=== PATIENT | male | born 1985 | race Caucasian/White ===

== ENCOUNTER → 2018-01-12 | Outpatient (REF) | payer OTHER ==
[2018-01-12 16:54] LABS: ALBUMIN 4.2 GM/DL (3.2-5.2); ALKALINE PHOSPHATASE 56 U/L (45-117); ALT/SGPT 25 U/L (12-78); ANION GAP 8 MEQ/L (8-16); AST/SGOT 18 U/L (7-37); BILIRUBIN,TOTAL 0.8 MG/DL (0.2-1.0); BLOOD UREA NITROGEN 15 MG/DL (7-18); CALCIUM LEVEL 8.4 MG/DL (8.5-10.1); CARBON DIOXIDE LEVEL 27 MEQ/L (21-32); CHLORIDE LEVEL 107 MEQ/L (98-107); CHOLESTEROL LEVEL 121 MG/DL (<200); CREATININE FOR GFR 0.95 MG/DL (0.70-1.30); GLOMERULAR FILTRATION RATE > 60.0 (>60); GLUCOSE, FASTING 74 MG/DL (70-100); HDL CHOLESTEROL 42 MG/DL (>40); LDL CHOLESTEROL 59.6 MG/DL (<100); NON-HDL-C 79 MG/DL; POTASSIUM SERUM 4.3 MEQ/L (3.5-5.1); SODIUM LEVEL 142 MEQ/L (136-145); TOTAL PROTEIN 7.2 GM/DL (6.4-8.2); TRIGLYCERIDES LEVEL 97 MG/DL (<150)
[2018-01-12 16:55] LABS: BASO % 0.6 % (0.0-1.0); EOS # 0.6 10^3/uL (0.0-0.50); EOS % 9.4 % (0.0-3.0); HEMATOCRIT 36.6 % (42.0-52.0); HEMOGLOBIN 11.7 g/dl (13.5-17.5); IMMATURE GRANULOCYTE % 0.3 % (0-3.0); LYMPH # 2.7 10^3/uL (1.5-4.5); LYMPH % 40.5 % (24.0-44.0); MEAN CORPUSCULAR HEMOGLOBIN 22.1 pg (27.0-33.0); MEAN CORPUSCULAR VOLUME 69.1 fl (80.0-96.0); MONO # 0.5 10^3/uL (0.0-0.8); MONO % 7.6 % (0.0-5.0); NEUTROPHILS # 2.8 10^3/uL (1.8-7.7); NEUTROPHILS % 41.6 % (36.0-66.0); PLATELET COUNT, AUTOMATED 322 10^3/uL (150-450); RED CELL DISTRIBUTION WIDTH 18.1 % (11.5-14.5); WHITE BLOOD COUNT 6.6 10^3/uL (4.0-10.0)
== END ==
LOC: M SFHCCAPE 07:03
DX: F32.1 Major depressive disorder, single episode, moderate (principal); F41.1 Generalized anxiety disorder; Z13.6 Encounter for screening for cardiovascular disorders
CPT/HCPCS: 84443

== ENCOUNTER → 2018-06-17 | Outpatient (CLI) | payer OTHER ==
--- NOTE | 2018-06-17 12:47 | REP ---
MRI LUMBAR SPINE WITHOUT CONTRAST: HISTORY: Change in bowel function. Lumbar radiculopathy. Pain in the low back. TECHNIQUE: Sagittal and axial T1- and T2-weighted scans are acquired in the usual fashion with and without fat saturation. Sequences include spin echo, turbo spin-echo, and STIR imaging sequences. MRI FINDINGS: Lumbar vertebral body heights are preserved. Alignment is normal. There is bilateral L5 spondylolysis suspected without spondylolisthesis. Pedicles and posterior elements are otherwise intact. The tip of the conus medullaris is normal in position and appearance at T12-L1. There are degenerative disc changes at the T10-T11 level with mild central disc bulging and anterior osteophyte formation. No significant thecal sac compression is seen. Axial and sagittal images at the L1-2 disc level show diffuse disc bulging. This effaces the ventral margin of the thecal sac. No central canal stenosis or neural foraminal narrowing is evident. No focal disc herniation is seen. At the L2-L3, there is minimal diffuse disc bulging as well. No other finding. At L3-L4, there is minimal diffuse disc bulging effacing the ventral margin of the thecal sac. No central canal stenosis or neural foraminal encroachment is seen. At L4-5, there is a subtle central disc bulge. There is facet hypertrophy mild in degree bilaterally at L4-5. No central canal stenosis noted. There is mild left-sided neural foraminal narrowing due to facet hypertrophy. At L5-S1, there is no significant disc abnormality. Facet hypertrophy is noted bilaterally. Incidental note is made of a sacralization of the left transverse process at L5 with a pseudoarthrosis on the left. IMPRESSION: Multilevel degenerative disc changes with mild diffuse disc bulging. Some facet hypertrophy is noted as above. There is left-sided L4-5 neural foraminal encroachment from facet hypertrophy. Bilateral L5 spondylolysis without spondylolisthesis. Electronically Signed by Matt Conley MD 06/17/2018 04:13 P
== END ==
LOC: M PLARAD 09:49
PROVIDERS: ATTEND Physician Assistant
DX: M54.16 Radiculopathy, lumbar region (principal); R19.8 Other specified symptoms and signs involving the digestive system and abdomen; M43.06 Spondylolysis, lumbar region; M51.26 Other intervertebral disc displacement, lumbar region

== ENCOUNTER → 2018-07-14 | Outpatient (CLI) | payer OTHER ==
[~2018-07-14] MED LIST: ACET-683; CYCL10TA; HYDR-3713; MELO15TA28; NEUR300C PO; PRED20TA PO; VENTAER
--- NOTE | 2018-07-19 00:31 | ECWPNPC ---
PATIENT NAME: CUCA ABEL : 1985 GENDER: MALE VISIT DATE: 07/14/2018 DISCHARGE DATE: 07/14/18 1535 VISIT LOCKED DATE TIME: PHYSICIAN: HEIDI TREVIÑO MD RESOURCE: HEIDI TREVIÑO MD REASON FOR APPOINTMENT 1. W/C LUMBAR & THORACIC PAIN HISTORY OF PRESENT ILLNESS FALL RISK SCREENING: SCREENING :NO FALLS IN THE PAST YEAR PAIN SCREENING: PATIENT HAS A COMPLAINT OF ACUTE OR CHRONIC PAIN :YES 32 YEAR OLD MALE PATIENT WITH A HISTORY OF CHRONIC LOW BACK AND THORACIC PAIN. THE PATIENT DESCRIBES THE PAIN ACHING, SHARP, STABBING, SHOOTING, AND CONTINUOUS WITH A PAIN SCORE OF 7-10/10 DEPENDING ON PHYSICAL ACTIVITY. 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 THE PATIENT SAYS THAT HIS PAIN STARTS IN HIS LOW BACK AND RADIATES DOWN HIS RIGHT LEG TO HIS TOES WITH SOME NUMBNESS AND TINGLING. THE PATIENT IS ALSO HAVING PAIN IN HIS PELVIC AREA. THE PATIENT SAYS THAT USING HIS TENS UNIT AND GOING TO PHYSICAL THERAPY HAVE BEEN HELPING HIM. THE PATIENT IS CURRENTLY USING HYDROCODONE TO AID IN PAIN RELIEF AND STATES THAT IT HELPS TAKE THE EDGE OFF. PATIENT DENIES UNEXPLAINABLE WEIGHT LOSS, FEVER, CHILLS, NEW CHANGES ON HIS URINARY OR BOWEL CONTROL. CURRENT MEDICATIONS TAKING NORCO 5-325 MG TABLET 1 TABLET ORALLY 3 TIMES A DAY NEEDED, MDD=3 TAKING VENTOLIN HFA 108 (90 BASE) MCG/ACT AEROSOL SOLUTION 2 PUFFS NEEDED INHALATION EVERY 6 HRS TAKING ACETAMINOPHEN 500 MG TABLET 2 TABLETS ORALLY TWICE A DAY TAKING CYCLOBENZAPRINE HCL 10 MG TABLET 1 TABLET NEEDED ORALLY THREE TIMES A DAY, MDD=3 NOT-TAKING MELOXICAM 15 MG TABLET 1 TABLET ORALLY ONCE A DAY NOT-TAKING PHYSICAL THERAPY EVALUATE AND TREAT PHYSICAL THERAPY MECHANICAL EVAL & TX LOW BACK PAIN (M54.16) & NECK PAIN (M54.2) 12 VISITS OVER 4 WEEKS MEDICATION LIST REVIEWED AND RECONCILED WITH THE PATIENT PAST MEDICAL HISTORY HX OF FRACTURED BONES INCLUDING NECK CURRENT SMOKER TENS UNIT ALLERGIES N.K.D.A. SURGICAL HISTORY DENIES PAST SURGICAL HISTORY FAMILY HISTORY FATHER: , DIAGNOSED WITH OTHER MOTHER: ALIVE, DIAGNOSED WITH CANCER, OTHER 1 SON(S) . HX FAMILY OF COLON CA DX IN 60'S. SOCIAL HISTORY GENERAL: TOBACCO USE ARE YOU A:CURRENT SMOKER ARE YOU INTERESTED IN QUITTING?THINKING ABOUT QUITTING COUNSELED THE PATIENT ON SMOKING CESSATION, EDUCATION [id number]/24/2019 HOW MANY CIGARETTES A DAY DO YOU SMOKE?11-20 HOW SOON AFTER YOU WAKE UP DO YOU SMOKE YOUR FIRST CIGARETTE?AFTER 60 MIN HOW OFTEN DO YOU SMOKE CIGARETTES?EVERY DAY PATIENT COUNSELED ON THE DANGERS OF TOBACCO USE AND URGED TO QUIT:07/14/2018 SMOKING CESSATION INFORMATION GIVEN06/08/2018 VAPORNO E-CIGARETTENO ALCOHOL SCREENING DID YOU HAVE A DRINK CONTAINING ALCOHOL IN THE PAST YEAR?NO POINTS0 INTERPRETATIONNEGATIVE RECREATIONAL DRUG USE DRUG USE?YES CAFFEINE CAFFEINE USE?YES COFFEE AND SODA HIV / HEP-C SCREENING HIV TEST OFFERED TO PATIENT:YES DATE OFFERED:06/08/2018 TEST ACCEPTED:NO REASON:PATIENT DECLINED BROCHURE PROVIDED TO PATIENTYES HEP-C TEST OFFERED TO PATIENT:NO CHURCH [id number] BAHAI NO SIKHISM BELIEFS THAT WOULD IMPACT HEALTH CARE. LANGUAGE LANGUAGES SPOKEN:IRISH LEARNING BARRIERS / SPECIAL NEEDS CHANGE FROM LAST VISIT?NO BARRIERS TO LEARNING?NO HEARING IMPAIRED?NO VISION IMPAIRED?NO COGNITIVELY IMPAIRED?NO READINESS TO LEARN?YES LEARNING PREFERENCES?NO LEARNING CAPABILITIES PRESENT?YES EMOTIONAL BARRIERS?YES SPECIAL DEVICES?NO HELIOTHERAPIST NEEDED?NO DOMESTIC VIOLENCE DO YOU FEEL SAFE IN YOUR ENVIRONMENT?YES DIET: REGULAR. EXERCISE: NO REGULAR EXERCISE,WORKS HARD. MARITAL STATUS: . OTHERS AT HOME: CHILD. PAIN CLINIC PFS, CLERGY, PUBLIC HEALTH REFERRALS HAS THE PATIENT BEEN EDUCATED REGARDING HIS/HER PLAN OF CARE?YES HAS THE PATIENT BEEN EDUCATED REGARDING PAIN, THE RISK FOR PAIN, THE IMPORTANCE OF EFFECTIVE PAIN MANAGEMENT, AND THE PAIN ASSESSMENT PROCESS?YES ADVANCE DIRECTIVE ADVANCE DIRECTIVE DISCUSSED WITH PATIENT:YES DECLINED HOSPITALIZATION/MAJOR DIAGNOSTIC PROCEDURE DENIES PAST HOSPITALIZATION REVIEW OF SYSTEMS REVIEWED BY: PROVIDER: HEIDI TREVIÑO MD . CONSTITUTIONAL: ANY CHANGE IN YOUR MEDICAL CONDITION? NO . CHILLS NO . FEVER NO . INFECTION: DO YOU HAVE NEW INFECTIONS? NO . DO YOU HAVE HISTORY OF MRSA? NO . MUSCULOSKELETAL: ANY NEW PATTERNS OF PAIN OR NUMBNESS? NO . SYTEMIC LUPUS NO . GASTROENTEROLOGY: ANY NEW CHANGE IN BOWEL CONTROL? YES, PT C/O SMALL AMOUNT OF BRIGHT RED BLOOD WHEN WIPING . BARRETTS ESOPHAGUS NO . CIRRHOSIS NO . HEPATITIS NO . LIVER FAILURE NO . ACID REFLUX NO . UNEXPLAINED WEIGHT LOSS NO . GENITOURINARY: ANY NEW CHANGE IN BLADDER CONTROL? YES, PT C/O FREQUENCY . IS THERE A CHANCE YOU COULD BE ? NO . HEMATOLOGY/LYMPH: DO YOU TAKE ANY BLOOD THINNERS? (FOR EXAMPLE- COUMADIN, PLAVIX, AGGRENOX, PLATEL, PRADAXA, OR XARELTO) NO . WHEN WAS YOUR LAST DOSE? DATE: TIME: . LOW PLATELET COUNT NO . SICKLE CELL DISEASE NO . VON WILLIEBRANDS NO . FACTOR V LEIDEN NO . THALLASEMIA NO . ANEMIA NO . EASY BRUISING NO . NEUROLOGY: HAVE YOU FALLEN IN THE PAST 6 MONTHS? YES, PT FELL 01/2018 WHILE AT WORK LOST FOOTING DURING CONSTRUCTION TRANSFERING EQUIPMENT, PT WAS SEEN AT [facility] ER FOR INJURIES WHERE IMAGING WAS DONE AND MUSCLE RELAXERS WERE GIVEN WHICH HELPED TAKE THE EDGE OFF THE PAIN . ANY NEW EXTREMITY NUMBNESS OR WEAKNESS? NO . HEAD INJURY NO . DEMENTIA NO . CEREBRAL PALSY NO . MULTIPLE SCLEROSIS NO . DIZZINESS NO . HEADACHE NO . STROKES NO . VERTIGO NO . CARDIOLOGY: DO YOU HAVE A PACEMAKER OR DEFIBRILLATOR? NO . ANGINA NO . HEART ATTACK NO . HEART SURGERY NO . CONGESTIVE HEART FAILURE/FLUID OVERLOAD NO . CHEST PAIN NO . HIGH BLOOD PRESSURE NO . IRREGULAR HEART BEAT NO . RESPIRATORY: HAVE YOU BEEN SICK IN THE PAST WEEK? NO . FEVER NO . FLU LIKE SYMPTOMS? NO . CPAP NO . BYPAP NO . ASTHMA NO . EMPHYSEMA NO . CHRONIC LUNG DISEASES NO . SHORTNESS OF BREATH ON EXERTION NO . COUGH NO . SNORING NO . INTEGUMENTARY: DO YOU HAVE ANY RASHES OR OPEN SORES? NO . ALLERGIC/IMMUNO: ARE YOU ALLERGIC TO SHELLFISH OR IV DYE? NO . ANY NEW ALLERGIES? NO . PSYCHIATRIC: DO YOU HAVE THOUGHTS OF HURTING YOURSELF OR SOMEONE ELSE? NO . ARE YOU ABUSED, NEGLECTED, OR IN AN UNSAFE ENVIRONMENT? NO . ENDOCRINOLOGY: ARE YOU DIABETIC? NO . THYROID DISORDER NO . OTHER: DO YOU NEED ANY PRESCRIPTIONS? NO . IF YES, PLEASE LIST: ____ . ANY NEW PROBLEMS WITH YOUR MEDICATIONS? NO . WHEN DID YOU LAST EAT? ____ . WHEN DID YOU LAST DRINK? ____ . WHAT DID YOU LAST DRINK? ____ . NAME OF PERSON DRIVING YOU HOME? ____ . DO YOU HAVE ANY OTHER QUESTIONS OR CONCERNS NO . VITAL SIGNS WT 170.6 LBS, HT 5'9", BMI 25.19 INDEX, BP 126/72 MM HG, HR 85 /MIN, RR 18 /MIN, TEMP 98.9 F, OXYGEN SAT % 98%, NA INITIALS SC 13:06, REVIEWED BY: EM. EXAMINATION GENERAL EXAMINATION: PATIENT IS ALERT O X 3 AND COOPERATIVE. LUNGS CLEAR, TO AUSCULTATION. HEART: NO MURMURS OR GALLOPS; FACIAL CRANIAL NERVES ARE GROSSLY NORMAL. GOOD SYMMETRY OF FACIAL MUSCLE MOVEMENT. NORMAL VISUAL NAVARRO. SEVERE TENDERNESS OVER THE LOW BACK AND THORACIC AREAS. RIGHT LEG IS WEAKER AT FLEXION. PRESENCE OF TRIGGER POINTS AND BANDS OF TISSUE WITH RESTRICTION OF MOVEMENT OF THE BACK. ASSESSMENTS MYALGIA, OTHER SITE - M79.18 (PRIMARY) LOW BACK PAIN - M54.5 OTHER CHRONIC PAIN - G89.29 PAIN IN THORACIC SPINE - M54.6 TREATMENT MYALGIA, OTHER SITE CLINICAL NOTES: WE DISCUSSED SEVERAL ISSUES WITH MR. ABEL'S PAIN MANAGEMENT CASE. DUE TO THE TRIGGER POINTS, BANDS OF TISSUE, AND RESTRICTION OF MOVEMENT, I WOULD LIKE TO MOVE FORWARD WITH A TRIGGER POINT INJECTION AT THIS TIME. WE DISCUSSED THE BENEFITS, RISKS, AND ALTERNATIVES OF THE INJECTION AND THE PATIENT WOULD LIKE TO PROCEED. I WOULD LIKE TO DISCUSS THE CASE WITH EDGAR GASTON REGARDING THE PATIENT'S MEDICATIONS AND WILL HAVE HER FILL OUT THE MEDICATION AGREEMENT FORM. THE PATIENT WILL FOLLOW UP IN ONE MONTH. INSTRUCTIONS WERE GIVEN, QUESTIONS WERE ANSWERED, PATIENT REPORTS UNDERSTANDING AND AGREES WITH THE PLAN. I, MAYCO CABALLERO, DOCUMENTED THE ABOVE INFORMATION ACTING A SCRIBE FOR DR. TREVIÑO. I HAVE REVIEWED THE ABOVE DOCUMENT, WRITTEN BY MAYCO ESCAMILLA AND I VERIFY THAT IT IS ACCURATE. DEAR DR. REICH:THANK YOU FOR YOUR KIND REFERRAL OF MR. ABEL. IF YOU WANT TO DISCUSS HIS CASE WITH ME PLEASE CALL ME AT THE PAIN CENTER AT [phone]. SINCERELY,HEIDI TREVIÑO, [facility]. OTHERS NOTES: TRIGGER POINT INJECTION MATERIAL WAS PRINTED, REVIEWED AND GIVEN TO PT. EM. PROCEDURES PN WORKMANS' COMP OPINION IN YOUR OPINION, WAS THE INCIDENT THAT THE PATIENT DESCRIBED THE COMPETENT MEDICAL CAUSE OF THIS INJURY/ILLNESS? YES ARE THE PATIENT'S COMPLAINTS CONSISTENT WITH HIS/HER HISTORY OF THE INJURY/ILLNESS? YES IS THE PATIENT'S HISTORY OF THE INJURY/ILLNESS CONSISTENT WITH YOUR OBJECTIVE FINDING? YES WHAT IS THE PERCENTAGE OF TEMPORARY IMPAIRMENT? MODERATE TO MARKED = 66.7% IS THE PATIENT WORKING? NO DOCTOR ON SITE: HEIDI SIMONS MD PROCEDURE CODES FA211 ESTABILISHED PATIENT [facility] FACILITY CHARGE G8427 CURRENT MEDS W/DOSAGES DOCUMENTED G8730 PAIN ASSESS POS TOOL F/U PLAN DOC DISPOSITION & COMMUNICATION FOLLOW UP 4 WEEKS (REASON: W/C LOW BACK AND THORACIC) ELECTRONICALLY SIGNED BY HEIDI TREVIÑO MD, MD ON 07/18/2018 AT 03:18 PM EST DISCLAIMER : THIS IS A VISIT SUMMARY EXTRACTED FROM THE [employer] CHART. IT IS NOT A COPY OF THE [employer] PROGRESS NOTE. SIDNEY
== END ==
LOC: M PAIN 13:00
PROVIDERS: ATTEND Anesthesiology
DX: G89.29 Other chronic pain (principal); M79.18 Myalgia, other site; M54.5 Low back pain; M54.6 Pain in thoracic spine; F17.210 Nicotine dependence, cigarettes, uncomplicated; Z79.899 Other long term (current) drug therapy

== ENCOUNTER 2018-07-16 12:22 | Emergency (ER) | payer OTHER, SELFPAY ==
[~2018-07-16] VITALS: Ht 175.3 cm; Wt 76.4 kg
[2018-07-16 12:36] VITALS: BP 134/81
[2018-07-16] MEDS ORDERED: MELO15TA28 (12:41)
[2018-07-16] MEDS ORDERED: CYCL10TA (12:41)
[2018-07-16] MEDS ORDERED: HYDR-3713 (12:41)
[2018-07-16] MEDS ORDERED: VENTAER (12:41)
[2018-07-16] MEDS ORDERED: ACET-683 (12:41)
[2018-07-16] MEDS ORDERED: KETOROLAC 60 MG/2 ML VIAL (J1885) IM ONE (13:00)
[2018-07-17] MEDS ORDERED: PRED20TA PO (13:54)
[2018-07-17] MEDS ORDERED: NEUR300C PO (13:54)
== END 2018-07-16 13:40 | disposition left against medical advice (07) ==
LOC: M ED 12:22
DX: M54.5 Low back pain (principal); J45.909 Unspecified asthma, uncomplicated; M51.9 Unspecified thoracic, thoracolumbar and lumbosacral intervertebral disc disorder; F17.200 Nicotine dependence, unspecified, uncomplicated; Z79.899 Other long term (current) drug therapy
CPT/HCPCS: 96372; 99281; J1885

== ENCOUNTER 2018-07-17 12:59 | Emergency (ER) | payer OTHER, SELFPAY ==
[~2018-07-17] VITALS: Ht 175.3 cm; Wt 74.5 kg
[~2018-07-17 12:59] MED LIST changes: -NEUR300C PO; -PRED20TA PO
[2018-07-17 13:00] VITALS: BP 161/85
[2018-07-17] MEDS ORDERED: NEUR300C PO (13:54)
[2018-07-17] MEDS ORDERED: PRED20TA PO (13:54)
== END 2018-07-17 14:32 | disposition home or self-care (01) ==
LOC: M ED 12:59
DX: M54.5 Low back pain (principal); M54.16 Radiculopathy, lumbar region; Z76.5 Malingerer [conscious simulation]; J45.909 Unspecified asthma, uncomplicated; F17.210 Nicotine dependence, cigarettes, uncomplicated

== ENCOUNTER → 2019-01-05 | Outpatient (REF) | payer OTHER ==
[~2019-01-05] MED LIST changes: +NEUR300C PO; +PRED20TA PO
[2019-01-05 17:04] LABS: BASO % 0.3 % (0.0-1.0); EOS # 0.5 10^3/uL (0.0-0.50); EOS % 7.3 % (0.0-3.0); HEMATOCRIT 37.8 % (42.0-52.0); LYMPH # 2.7 10^3/uL (1.5-4.5); LYMPH % 41.5 % (24.0-44.0); MEAN CORPUSCULAR HEMOGLOBIN 21.7 pg (27.0-33.0); MEAN CORPUSCULAR HGB CONC 31.7 g/dl (32.0-36.5); MEAN CORPUSCULAR VOLUME 68.4 fl (80.0-96.0); MONO # 0.5 10^3/uL (0.0-0.8); NEUTROPHILS # 2.9 10^3/uL (1.8-7.7); NEUTROPHILS % 43.6 % (36.0-66.0); PLATELET COUNT, AUTOMATED 325 10^3/uL (150-450); RED BLOOD COUNT 5.53 10^6/uL (4.30-6.10); WHITE BLOOD COUNT 6.6 10^3/uL (4.0-10.0)
[2019-01-05 17:19] LABS: ALBUMIN 4.5 GM/DL (3.2-5.2); ALT/SGPT 24 U/L (12-78); BLOOD UREA NITROGEN 15 MG/DL (7-18); CALCIUM LEVEL 9.3 MG/DL (8.5-10.1); CARBON DIOXIDE LEVEL 28 MEQ/L (21-32); CHLORIDE LEVEL 108 MEQ/L (98-107); CREATININE FOR GFR 0.96 MG/DL (0.70-1.30); GLOMERULAR FILTRATION RATE > 60.0 (>60); GLUCOSE, FASTING 76 MG/DL (70-100); POTASSIUM SERUM 4.3 MEQ/L (3.5-5.1); SODIUM LEVEL 143 MEQ/L (136-145); TOTAL PROTEIN 7.5 GM/DL (6.4-8.2); URIC ACID 3.5 MG/DL (3.5-7.2)
[2019-01-08 00:06] LABS: ANA (HEP2) Negative (.)
== END ==
LOC: M SFHCCLAY 11:12
PROVIDERS: ATTEND Family Medicine
DX: M25.441 Effusion, right hand (principal); M25.442 Effusion, left hand

== ENCOUNTER → 2019-01-05 | Outpatient (CLI) | payer OTHER ==
--- NOTE | 2019-01-05 15:18 | REP ---
Right hand four views : There is no fracture or dislocation. Mineralization and joint spaces are normal. There are no calcifications or foreign bodies. Impression: Negative right hand. Left hand four views : There is no fracture or dislocation. Mineralization and joint spaces are normal. There are no calcifications or foreign bodies. Impression: Negative left hand . Electronically Signed by Martin Rico MD 01/05/2019 03:09 P
== END ==
LOC: M CLY 11:16
PROVIDERS: ATTEND Family Medicine
DX: M25.441 Effusion, right hand (principal); M25.442 Effusion, left hand

== ENCOUNTER → 2019-01-26 | Outpatient (REF) | payer OTHER ==
[2019-01-26 14:15] LABS: C REACTIVE PROTEIN QUANTITATIV < 0.30 MG/DL (0.00-0.30); CPK CREATINE PHOSPHOKINASE 118 U/L (39-308); RHEUMATOID FACTOR QUANT < 10.0 IU/ML (<15.0); URIC ACID 4.2 MG/DL (3.5-7.2)
[2019-01-26 14:17] LABS: FOLATE 9.7 NG/ML; TOTAL 25(OH) VITAMIN D 31.5 NG/ML (30.0-100.0); VITAMIN B12 LEVEL 439 PG/ML
[2019-02-02 00:07] LABS: ANTI DS-DNA AB <1:10 titer (.); ANTINUCLEAR ANTIBODIES DIRECT Negative (Negative); CERULOPLASMIN 18.6 mg/dL (16.0-31.0); COPPER PLASMA 83 ug/dL (72-166); CYCLIC CITRULLINATED PEPTIDE 6 units (0-19); RNP ANTIBODIES <0.2 AI (0.0-0.9); SJOGREN'S ANTI SS-A <0.2 AI (0.0-0.9); SJOGREN'S ANTI SS-B <0.2 AI (0.0-0.9); SMITH ANTIBODIES <0.2 AI (0.0-0.9)
== END ==
LOC: M LABNEURO 09:21
PROVIDERS: ATTEND Psychiatry & Neurology Neurology
DX: F09 Unspecified mental disorder due to known physiological condition (principal)

== ENCOUNTER 2019-03-06 08:55 | Day surgery (SDC) | payer OTHER ==
[~2019-03-06] VITALS: Ht 175.3 cm; Wt 78.5 kg
[~2019-03-06 08:55] MED LIST changes: -ACET-683; +ACET-683 PO; +FLUT44IN INH; +GABA-845 PO; -MELO15TA28; +MELO15TA28 PO; +NS 1,000 ML IV ONE; +TRAM50TA2 PO; -VENTAER; +VENTAER INH
[2019-03-06] MEDS ORDERED: ALBUTEROL SULFATE 2.5 MG/0.5 ML INH NEB SOLN As Ordered ONE (10:17)
[2019-03-06] MEDS ORDERED: ALBUTEROL SULFATE 2.5 MG/0.5 ML INH NEB SOLN INH ONE (11:00)
[2019-03-06] MEDS ORDERED: PROPOFOL 200 MG/20 ML VIAL As Ordered ONE (11:09)
[2019-03-06] MEDS ORDERED: LIDOCAINE 2% INJ 100 MG/5 ML SDV (FOR ANES.) As Ordered ONE (11:09)
--- NOTE | 2019-03-06 12:00 | ROOR ---
Patient Name: Geo Salgado Procedure Date: 03/06/2019 11:15 AM Date of : 1985 Age: 33 Room: [facility] Gender: Male Note Status: Finalized Procedure: Colonoscopy Indications: Hematochezia, ( reports of patients mother not available at this time for review). Providers: Brandyn Bernardo MD Referring MD: Lori ZAMORA DO Requesting Provider: Medicines: Monitored Anesthesia Care Complications: No immediate complications. Procedure: Pre-Anesthesia Assessment: - Prior to the procedure, a History and Physical was performed, and patient medications and allergies were reviewed. The patient is competent. The risks and benefits of the procedure and the sedation options and risks were discussed with the patient. All questions were answered and informed consent was obtained. Patient identification and proposed procedure were verified by the physician, the nurse and the anesthesiologist in the procedure room. Mental Status Examination: alert and oriented. Airway Examination: normal oropharyngeal airway and neck mobility. Respiratory Examination: clear to auscultation. CV Examination: normal. Prophylactic Antibiotics: The patient does not require prophylactic antibiotics. Prior Anticoagulants: The patient has taken no previous anticoagulant or antiplatelet agents. ASA Grade Assessment: II - A patient with mild systemic disease. After reviewing the risks and benefits, the patient was deemed in satisfactory condition to undergo the procedure. The anesthesia plan was to use monitored anesthesia care (MAC). Immediately prior to administration of medications, the patient was re-assessed for adequacy to receive sedatives. The heart rate, respiratory rate, oxygen saturations, blood pressure, adequacy of pulmonary ventilation, and response to care were monitored throughout the procedure. The physical status of the patient was re-assessed after the procedure. The Colonoscope was introduced through the anus and advanced to the terminal ileum, with identification of the appendiceal orifice and IC valve. The colonoscopy was performed without difficulty. The patient tolerated the procedure well. The quality of the bowel preparation was poor. The terminal ileum, ileocecal valve, appendiceal orifice, and rectum were photographed. Scope insertion time was 4 minutes. Scope withdrawal time was 8 minutes. The total duration of the procedure was 12 minutes. Findings: The perianal and digital rectal examinations were normal. The terminal ileum appeared normal. A moderate amount of semi-solid stool was found from sigmoid to ascending colon, interfering with visualization. Lavage of the area was performed using a large amount of sterile water, resulting in incomplete clearance with fair visualization. Non-bleeding external and internal hemorrhoids were found during retroflexion. The hemorrhoids were medium-sized. Impression: - Preparation of the colon was poor. - The examined portion of the ileum was normal. - Stool from sigmoid to ascending colon. - Non-bleeding external and internal hemorrhoids. - No specimens collected. Recommendation: - Patient has a contact number available for emergencies. The signs and symptoms of potential delayed complications were discussed with the patient. Return to normal activities tomorrow. Written discharge instructions were provided to the patient. - High fiber diet. - Continue present medications. - Repeat colonoscopy in 2 or 5 years -- date to be decided based on the genetic test results from patient's mother or he will need testing. - Return to GI clinic in [facility] (address [address], [address], [place], [facility]) in 4 -- 6 weeks. Please call GI clinic @ [phone] for apppointment date and time. - Return to primary care physician. Brandyn Bernardo MD Brandyn Bernardo MD 03/06/2019 11:59:52 AM Electronically signed by Brandyn Bernardo MD Number of Addenda: 0 Note Initiated On: 03/06/2019 11:15 AM Estimated Blood Loss: Estimated blood loss was minimal.
[2019-03-06 12:15] VITALS: BP 109/77
== END 2019-03-06 12:16 | disposition home or self-care (01) ==
LOC: M OPP 08:55
PROVIDERS: ATTEND Internal Medicine Gastroenterology
DX: K64.8 Other hemorrhoids (principal); Z84.81 Family history of carrier of genetic disease; Z79.891 Long term (current) use of opiate analgesic; Z79.899 Other long term (current) drug therapy

== ENCOUNTER → 2019-09-22 | Outpatient (CLI) | payer OTHER ==
[~2019-09-22] MED LIST changes: -NS 1,000 ML IV ONE
== END ==
LOC: M LABSMTC 12:31
PROVIDERS: ATTEND Family Medicine
DX: Z11.59 Encounter for screening for other viral diseases (principal); Z20.828 Contact with and (suspected) exposure to other viral communicable diseases

== ENCOUNTER → 2019-10-26 | Outpatient (REF) | payer OTHER ==
[~2019-10-26] MED LIST changes: +CYCL-707; -CYCL10TA
[2019-11-01 08:07] LABS: CANNABINOID, URINE Positive (Cutoff=20); CARBOXY THC (GC/MS) >300 ng/mL (Cutoff=10); CREATININE, URINE 111.9 mg/dL (20.0-300.0); TRAMADOL, URINE Positive (Cutoff=200); TRAMADOL, URINE (GC/MS) >5000 ng/mL (Cutoff=100)
== END ==
LOC: M SFHCCLAY 13:10
PROVIDERS: ATTEND Family Medicine
DX: Z51.81 Encounter for therapeutic drug level monitoring (principal); F41.1 Generalized anxiety disorder

== ENCOUNTER 2020-04-04 18:45 | Emergency (ER) | payer OTHER ==
[~2020-04-04] VITALS: Ht 175.3 cm; Wt 71.3 kg
[2020-04-04 18:45] VITALS: BP 132/71
[2020-04-04] MEDS ORDERED: ALPR0.5T3 (18:53)
== END 2020-04-04 20:03 | disposition left against medical advice (07) ==
LOC: M ED 18:45
DX: Z53.21 Procedure and treatment not carried out due to patient leaving prior to being seen by health care provider (principal)

== ENCOUNTER 2020-04-14 20:55 | Emergency (ER) | payer OTHER ==
[~2020-04-14] VITALS: Ht 175.3 cm; Wt 78.6 kg
[~2020-04-14 20:55] MED LIST changes: +ALPR0.5T3
[2020-04-14 21:21] VITALS: BP 116/71
[2020-04-14] MEDS ORDERED: HYDR-4571 (21:28)
== END 2020-04-14 22:37 | disposition home or self-care (01) ==
LOC: M ED 20:55
DX: F43.20 Adjustment disorder, unspecified (principal); F41.9 Anxiety disorder, unspecified; Z79.899 Other long term (current) drug therapy; F17.210 Nicotine dependence, cigarettes, uncomplicated